=== PATIENT | female | born 1995 | race Caucasian/White ===

== ENCOUNTER 2019-02-22 08:20 | Emergency (ER) | payer OTHER ==
[2019-02-22 08:27] VITALS: BMI 31.8
[2019-02-22] MEDS ORDERED: Magnesium Sulfate 2 gm/50 ml 2 GM/50 ML BAG IVPB ONE ×2 (08:34)
[2019-02-22 08:35] VITALS: TEMP 98.6
[2019-02-22] MEDS ORDERED: Magnesium Sulfate 1 gm in D5W 1 GM/100 ML BAG IVPB ONE (08:36)
--- NOTE | 2019-02-22 08:43 | ED PDOC ---
Arrival/HPI - General Chief Complaint: Respiratory Distress Historian: Patient - History of Present Illness Narrative History of Present Illness (Text): 02/22/19 08:43 23 year old female, with a past medical history of asthma, who presents to the emergency department complaining of shortness of breath onset yesterday. Patient endorses throat pain, chest pain, and states her "lungs hurt". Patient reports she does not use an inhaler. She endorses taking allergy pills with no relief. Patient denies any headaches, chills, dizziness, coughs, nausea, vomiting, abdominal pain, or any other complaints. Patient denies any recent travel or sick contacts. Patient reports her LNMP was at the beginning of this month. PMD: Dr. Hunt Time/Duration: 24 hours Symptom Onset: Gradual Symptom Course: Unchanged Activities at Onset: Light Context: Home Past Medical History - Provider Review Nursing Documentation Reviewed: Yes - Tetanus Immunization Tetanus Immunization: Up to Date - Pulmonary Hx Asthma: Yes - Neurological Hx Neurological Disorder: Yes Hx Migraine: Yes - Psychiatric Hx Depression: No Hx Emotional Abuse: No Hx Physical Abuse: No Hx Substance Use: No - Past Surgical History Past Surgical History: No Previous - Suicidal Assessment Feels Threatened In Home Enviroment: No Family/Social History - Physician Review Nursing Documentation Reviewed: Yes Family/Social History: Unknown Family HX Smoking Status: Never Smoked Hx Alcohol Use: No Hx Substance Use: No Hx Substance Use Treatment: No Allergies/Home Meds Allergies/Adverse Reactions: Allergies diclofenac Allergy (Verified 02/22/19 08:37) RASH NSAIDS (Non-Steroidal Anti-Inflamma Allergy (Verified 02/22/19 08:37) ANAPHYLAXIS NSAI Allergy (Uncoded 04/22/16 19:44) ANAPHYLAXIS Review of Systems - Physician Review All systems were reviewed & negative as marked: Yes - Review of Systems Constitutional: absent: Fevers ENT: Sore Throat Respiratory: SOB Cardiovascular: Chest Pain Gastrointestinal: absent: Nausea, Vomiting Musculoskeletal: absent: Back Pain, Neck Pain Neurological: absent: Headache Physical Exam Vital Signs Reviewed: Yes Vital Signs Temp Pulse Resp BP Pulse Ox 02/22/19 08:33 98.6 F 83 18 121/67 100 Temperature: Afebrile Blood Pressure: Normal Pulse: Regular Respiratory Rate: Normal Appearance: Positive for: Well-Appearing, Non-Toxic, Comfortable Pain Distress: None Mental Status: Positive for: Alert and Oriented X 3 - Systems Exam Head: Present: Atraumatic, Normocephalic Pupils: Present: PERRL Extroacular Muscles: Present: EOMI Conjunctiva: Present: Normal Mouth: Present: Moist Mucous Membranes Neck: Present: Normal Range of Motion Respiratory/Chest: Present: Good Air Exchange, Wheezes (wheezing b/l). No: Respiratory Distress, Accessory Muscle Use Cardiovascular: Present: Regular Rate and Rhythm, Normal S1, S2. No: Murmurs Abdomen: No: Tenderness, Distention, Peritoneal Signs Back: Present: Normal Inspection Upper Extremity: Present: Normal Inspection. No: Cyanosis, Edema Lower Extremity: Present: Normal Inspection. No: Edema Neurological: Present: GCS=15, Speech Normal Skin: Present: Warm, Dry, Normal Color. No: Rashes Psychiatric: Present: Alert, Oriented x 3, Normal Insight, Normal Concentration Medical Decision Making ED Course and Treatment: 02/22/19 08:40 Impression: 23 year old female presents to the emergency department complaining of shortness of breath since yesterday. Differential Diagnosis included but are not limited to: --Bronchitis --PNA Plan: -- Labs -- Chest X-ray -- Duoneb -- SOLU-medrol -- Magnesium sulfate -- Urinalysis -- Urine preg test -- Reassess and disposition Prior Visits: Notes and results from previous visits were reviewed. Progress Notes: 02/22/19 09:45 Patient reassessed and feels better. Repeat pulmonary exam reveals continued wheezing and rhonchi. Additional nebulizers added. 02/22/19 10:31 Labs reviewed and unremarkable. Patient updated on lab findings and feels better. She reports improvement in her symptoms. She reports running out of her inhaler medications and requests for scripts. - Lab Interpretations Lab Results: 02/22/19 08:52 02/22/19 08:52 Lab Results 02/22/19 09:25: Urine Color Yellow, Urine Appearance Clear, Urine pH 6.0, Ur Specific [place] 1.015, Urine Protein Negative, Urine Glucose (UA) Negative, Urine Ketones Negative, Urine Blood Negative, Urine Nitrate Negative, Urine Bilirubin Negative, Urine Urobilinogen 0.2, Ur Leukocyte Esterase Negative, Urine HCG, Qual Negative 02/22/19 08:52: Sodium 138, Potassium 4.3, Chloride 106, Carbon Dioxide 22, Anion Gap 14, BUN 13, Creatinine 0.7, Est GFR ( Amer) > 60, Est GFR (Non- Af Amer) > 60, Random Glucose 91, Calcium 9.1, Magnesium 1.7, Total Bilirubin 0.4, AST 38 H, ALT 15, Alkaline Phosphatase 56, Total Protein 7.7, Albumin 4.2, Globulin 3.4, Albumin/Globulin Ratio 1.2 02/22/19 08:52: WBC 7.5, RBC 5.05, Hgb 13.3, Hct 40.8, MCV 80.8, MCH 26.3, MCHC 32.6, RDW 13.1, Plt Count 297, MPV 9.0, Neut % (Auto) 51.7, Lymph % (Auto) 36.6 H, [place]lin % (Auto) 4.3, Eos % (Auto) 7.1 H, Baso % (Auto) 0.3, Lymph # (Auto) 2.8, [place]lin # (Auto) 0.3, Eos # (Auto) 0.5, Baso # (Auto) 0.02, Absolute Neuts (auto) 3.89 I have reviewed the lab results: Yes - RAD Interpretation Narrative RAD Interpretations (Text): 02/22/19 12:47 Chest X-ray reviewed by Berna Garcia, shows: no active disease. Radiology Orders: 02/22/19 08:33 CHEST PORTABLE [RAD] Stat Fish Housekeeper: Radiologist - Medication Orders Current Medication Orders: Albuterol/Ipratropium (Duoneb 3 Mg/0.5 Mg (3 Ml) Ud) 3 ml IH Q15M XOCHITL Stop: 02/22/19 09:16 Magnesium Sulfate/Dextrose (Magnesium Sulfate 1 Gm/100 Ml D5w) 1 gm in 100 mls @ 100 mls/hr IVPB ONCE ONE Stop: 02/22/19 09:35 Discontinued Medications Methylprednisolone (Solu-Medrol) 125 mg IVP STAT STA Stop: 02/22/19 08:34 Discontinued Medications Albuterol Sulfate (Albuterol 0.083% Inhal Stephanie (2.5 Mg/3 Ml) Ud) 2.5 mg INH STAT STA Stop: 02/22/19 09:31 Last Admin: 02/22/19 09:46 Dose: 2.5 mg Albuterol/Ipratropium (Duoneb 3 Mg/0.5 Mg (3 Ml) Ud) 3 ml IH Q15M XOCHITL Stop: 02/22/19 09:16 Last Admin: 02/22/19 09:31 Dose: 3 ml Magnesium Sulfate/Dextrose (Magnesium Sulfate 1 Gm/100 Ml D5w) 1 gm in 100 mls @ 100 mls/hr IVPB ONCE ONE Stop: 02/22/19 09:35 Last Admin: 02/22/19 09:08 Dose: 100 mls/hr eMAR Start Stop Document 02/22/19 09:08 MA (Rec: 02/22/19 09:[address] [facility] [id number]) Intravenous Solution Start Date 02/22/19 Start Time 09:08 Methylprednisolone (Solu-Medrol) 125 mg IVP STAT STA Stop: 02/22/19 08:34 Last Admin: 02/22/19 08:55 Dose: 125 mg IVP Administration Document 02/22/19 08:55 MA (Rec: 02/22/19 09:[address] [facility] [id number]) Charges for Administration # of IVP Administrations 1 - Scribe Statement The provider has reviewed the documentation as recorded by the Scribe Nazia Tello All medical record entries made by the Scribe were at my direction and personally dictated by me. I have reviewed the chart and agree that the record accurately reflects my personal performance of the history, physical exam, medical decision making, and the department course for this patient. I have also personally directed, reviewed, and agree with the discharge instructions and disposition. Disposition/Present on Arrival - Present on Arrival Any Indicators Present on Arrival: No History of DVT/PE: No History of Uncontrolled Diabetes: No Urinary Catheter: No History of Decub. Ulcer: No History Surgical Site Infection Following: None - Disposition Have Diagnosis and Disposition been Completed?: Yes Diagnosis: Bronchitis Disposition: HOME/ ROUTINE Disposition Time: 10:30 Patient Plan: Discharge Condition: IMPROVED Discharge Instructions (ExitCare): Acute Bronchitis, Adult (DC) Print Language: [place] Additional Instructions: All medical record entries made by the Scribe were at my direction and personally dictated by me. I have reviewed the chart and agree that the record accurately reflects my personal performance of the history, physical exam, medical decision making, and the department course for this patient. I have also personally directed, reviewed, and agree with the discharge instructions and disposition. Please follow up with your PCP Please take medications as prescribed Prescriptions: Albuterol HFA [Ventolin HFA 90 mcg/actuation (8 g)] 200 puff IH Q4H #2 puff Methylprednisolone [Medrol Dose Pack (21 tabs)] 4 mg PO DAILY #21 mg Referrals: Yuliya Hunt APN [Primary Care Provider] - Follow up with primary Forms: [facility] (Portuguese), WORK NOTE
[2019-02-22] MEDS: Albuterol-Ipratrop 3 mg / 0.5 (3 ml) UD IH SCH ×3 (08:55→09:31)
[2019-02-22 09:08] LABS: BASO # 0.02 K/mm3 (0.0-2.0); BASO % 0.3 % (0.0-3.0); EOS # 0.5 (0.0-0.7); EOS % 7.1 % (1.5-5.0); HEMOGLOBIN 13.3 g/dL (12.0-16.0); LYMPH # 2.8 (1.2-3.4); LYMPH % 36.6 % (22.0-35.0); MEAN CELL VOLUME 80.8 fl (80.0-105.0); MEAN CORPUSCULAR HEMOGLOBIN 26.3 pg (25.0-35.0); MEAN CORPUSCULAR HGB CONC 32.6 g/dl (31.0-37.0); MONO # 0.3 (0.1-0.6); MONO % 4.3 % (1.0-6.0); RBC 5.05 10^6/uL (3.5-6.1); RED CELL DISTRIBUTION WIDTH 13.1 % (11.5-14.5); WHITE BLOOD COUNT 7.5 10^3/uL (4.5-11.0)
[2019-02-22 09:19] LABS: ALB/GLOB RATIO 1.2 (1.1-1.8); ALBUMIN 4.2 g/dL (3.0-4.8); ALT/SGPT 15 U/L (7-56); AST/SGOT 38 U/L (14-36); BLOOD UREA NITROGEN 13 mg/dL (7-21); CALCIUM 9.1 mg/dL (8.4-10.5); GFR NON-AFRICAN AMERICAN > 60
[2019-02-22] MEDS ORDERED: Albuterol 0.083% Inhal Sol (2.5 mg/3 mL) UD INH STA (09:30)
--- NOTE | 2019-02-22 09:36 | RAD ---
Date of service: 02/22/2019 HISTORY: wheezing COMPARISON: 09/08/2013 TECHNIQUE: 1 view obtained. FINDINGS: LUNGS: No active pulmonary disease. PLEURA: No significant pleural effusion identified, no pneumothorax apparent. CARDIOVASCULAR: No aortic atherosclerotic calcification present. Normal cardiac size. No pulmonary vascular congestion. OSSEOUS STRUCTURES: No significant abnormalities. VISUALIZED UPPER ABDOMEN: Normal. OTHER FINDINGS: None. IMPRESSION: No active disease.
[2019-02-22 09:38] LABS: URINE BILIRUBIN NEGATIVE (NEGATIVE); URINE BLOOD NEGATIVE (NEGATIVE); URINE GLUCOSE (UA) NEGATIVE (NEGATIVE); URINE LEUKOCYTE ESTERASE NEGATIVE Leu/uL (NEGATIVE); URINE PROTEIN NEGATIVE mg/dL (<30 mg/dL); URINE UROBILINOGEN 0.2 E.U./dL (<1 E.U./dL)
[2019-02-22 09:42] LABS: HCG,QUALITATIVE URINE NEGATIVE (NEGATIVE); URINE APPEARANCE CLEAR (CLEAR); URINE COLOR YELLOW (YELLOW)
[2019-02-22 10:43] VITALS: BP 125/66; PULSE 75; RESP 16; O2SAT 98
== END 2019-02-22 10:42 | disposition home or self-care (01) ==
LOC: ED 08:20
DX: J40 Bronchitis, not specified as acute or chronic (principal)
CPT/HCPCS: 71045; 80053; 81003; 81025; 83735; 84703; 85025; 94640; 96374; 96375; 99284; J2930; J3475

== ENCOUNTER 2019-03-09 08:22 | Emergency (ER) | payer OTHER ==
[2019-03-09 08:23] VITALS: BMI 31.8
[2019-03-09 08:45] VITALS: RESP 18; TEMP 98.6
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
[2019-03-09 10:53] VITALS: O2SAT 98
[2019-03-09 12:20] VITALS: BP 128/88; PULSE 78
== END 2019-03-09 12:18 | disposition home or self-care (01) ==
LOC: ED 08:22
DX: M54.9 Dorsalgia, unspecified (principal)